=== PATIENT | female | born 1955 | race Caucasian/White ===

== ENCOUNTER → 2016-05-16 | Outpatient (CLI) | payer BC, OTHER ==
[2016-01-26 10:55] VITALS: BP 142/70
[~2016-05-16] MED LIST: ATOR40TA PO; BUPR300T3 PO; CLON0.5T PO; DOXY100T9 PO; GABA-586 PO; SERT100T PO
--- NOTE | 2016-05-17 13:36 | RAD ---
DATE: 05/16/2016 EXAM: Bilateral screening mammography HISTORY: Routine screening COMPARISON: 03/23/2015 This study was interpreted with the benefit of Computerized Aided Detection (CAD). FINDINGS: There are scattered fibroglandular densities in the breasts. An old breast biopsy marker is again noted on the right at the 12:00 location. There is an oval-shaped nodule in the right breast at the 6:00 location which is unchanged. It contains a couple of coarse calcifications. This is probably a fibroadenoma. There is an unchanged cluster of nodules projected over the axillary tail region of the left breast compatible with benign lymph nodes. No new or enlarging breast densities are seen. Benign type calcifications are again noted bilaterally. No suspicious microcalcifications have developed. IMPRESSION: Stable mammograms without evidence of malignancy. BI-RADS CATEGORY: 2 BENIGN FINDING(S) RECOMMENDED FOLLOW-UP: 12M 12 MONTH FOLLOW-UP PQRS compliance statement: Patient information was entered into a reminder system with a target due date for the next mammogram. Mammography is a sensitive method for finding small breast cancers, but it does not detect them all and is not a substitute for careful clinical examination. A negative mammogram does not negate a clinically suspicious finding and should not result in delay in biopsying a clinically suspicious abnormality. "Our facility is accredited by the [employer] Mammography Program."
== END | disposition home or self-care (01) ==
LOC: MAMMO 14:02
PROVIDERS: ATTEND Family Medicine
DX: Z12.31 Encounter for screening mammogram for malignant neoplasm of breast (principal)
CPT/HCPCS: 77063; G0202; 77067

== ENCOUNTER 2017-06-23 22:30 | Emergency (ER) | payer BC ==
[~2017-06-23] VITALS: Ht 165.1 cm; Wt 77.1 kg
--- NOTE | 2017-06-23 22:47 | EKG ---
[address] [address] Test Date: 2017-06-23 Test Time: 22:43:13 Pat Name: JESSICA CANADA Department: Room: Gender: F Bottom Turning Lathe Tender: MARISOL : 1955 Requested By: ELAN DEUTSCH Order Number: [id number] Reading MD: Antony Wolff MD Measurements Intervals [place] Rate: 64 P: 41 NV: 188 QRS: -31 QRSD: 82 T: 66 QT: 414 QTc: 431 Interpretive Statements SINUS RHYTHM Electronically Signed On 06-24-2017 13:02:22 CDT by Antony Wolff MD
[2017-06-23 22:50] VITALS: BP 145/84
--- NOTE | 2017-06-23 23:39 | RAD ---
INDICATION: syncope episode, fall
Sent CT Head from for comparison
hx concussion x 1 month ago COMPARISON: December 19, 2015 TECHNIQUE: Axial CT images obtained through the head and cervical spine without intravenous contrast. Coronal and sagittal reformats processed of cervical spine. One or more of the following individualized dose reduction techniques were utilized for this examination: 1. Automated exposure control; 2. Adjustment of the mA and/or kV according to patient size; 3. Use of iterative reconstruction technique. FINDINGS: Head: No intracranial hemorrhage. No midline shift. Basal cisterns patents. Ventricles and sulci are within normal limits. No acute osseous abnormality. Orbits and paranasal sinuses unremarkable. Cervical: No definite acute fracture. No dislocation. No evidence of perivertebral hematoma. IMPRESSION: 1. No acute intracranial hemorrhage. 2. No definite acute fracture or dislocation of the cervical spine. 3. Degenerative changes throughout the cervical spine with multilevel central canal neural foraminal stenosis as well as grade 1 anterolisthesis of C3 on 4 and C4 on 5. Electronically signed by: Usman Malave MD (06/23/2017 11:35 PM) [id number]
--- NOTE | 2017-06-23 23:43 | ED.ADGEN ---
Past History Past Medical History: Fibromyalgia, High Cholesterol, Hypertension Past Surgical History: No Surgical History Alcohol Use: Occasionally Drug Use: None Adult General Chief Complaint Chief Complaint Syncope HPI HPI Patient is a 61 -year-old female with history of recurrent syncope who presents with syncopal episode and posterior neck pain and right shoulder pain. Patient states she was walking to the kitchen when she began to feel lightheaded and off balance. She then experienced loss of consciousness and fell to the kitchen floors hitting her head, neck and right shoulder. Patient anticoagulation therapy. No seizure activity was reported. EMS was contacted, cervical collar was placed. Patient states she has had multiple similar syncopal episodes and recently had a loop recorder placed. states she was told to previous events that she been bradycardic and hypotensive in that her acquisitions assistant is evaluating her for possible pacemaker placement. Patient denies headache, blurred vision, chest pain, palpitations, shortness of breath, or focal extremity weakness or loss of sensations prior to syncopal event. No orolingual laceration, bowel or bladder incontinence. She states today's episode was similar to previous episodes and that her primary reason for coming to the emergency department so evaluation of back and shoulder pain. Insurance Loss Control Surveyor is Dr. Wolff. [] Review of Systems Review of Systems ROS as per HPI All other systems were reviewed and found to be within normal limits, except as documented in this note. Allergies Allergies Allergies Coded Allergies Type Severity Reaction Last Updated Verified procaine Allergy Intermediate 12/20/15 Yes sulfamethoxazole Allergy Intermediate 12/20/15 Yes trimethoprim Allergy Intermediate 12/20/15 Yes Physical Exam Physical Exam Constitutional: Well developed, well nourished, no acute distress, non-toxic appearance. [] HENT: Normocephalic, atraumatic, bilateral external ears normal, oropharynx moist, nose normal. [] Eyes: PERRLA, EOMI, conjunctiva normal, no discharge. [] Neck: Normal range of motion, she is posterior neck pain, no midline step-off, bruising or hematoma, hard cervical collar in place. [] Cardiovascular:Heart rate regular rhythm, no murmur [] Lungs & Thorax: Bilateral breath sounds clear to auscultation [] Abdomen: Bowel sounds normal, soft, no tenderness. [] Skin: Warm, dry, no erythema, no rash. [] Back: No tenderness. [] Extremities: Right shoulder, no bruising swelling or deformity, tenderness pain over lateral and posterior shoulder. Good range of motion noted with limited pain. [] Neurologic: Alert and oriented X 3, normal motor function, normal sensory function, no focal deficits noted. [] Psychologic: Affect normal, judgement normal, mood normal. [] Current Patient Data Vital Signs Vital Signs Date Time Temp Pulse Resp B/P (MAP) Pulse Ox O2 Delivery O2 Flow Rate FiO2 06/23/17 22:50 98.5 64 19 93 Room Air Lab Results Laboratory Tests Test 06/23/17 23:40 White Blood Count 12.7 x10^3/uL (4.0-11.0) H Red Blood Count 4.37 x10^6/uL (3.50-5.40) Hemoglobin 12.5 g/dL (12.0-15.5) Hematocrit 37.7 % (36.0-47.0) Mean Corpuscular Volume 86 fL (79-100) Mean Corpuscular Hemoglobin 29 pg (25-35) Mean Corpuscular Hemoglobin Concent 33 g/dL (31-37) Red Cell Distribution Width 16.5 % (11.5-14.5) H Platelet Count 173 x10^3/uL (140-400) Neutrophils (%) (Auto) 71 % (31-73) Lymphocytes (%) (Auto) 21 % (24-48) L Monocytes (%) (Auto) 6 % (0-9) Eosinophils (%) (Auto) 1 % (0-3) Basophils (%) (Auto) 1 % (0-3) Neutrophils # (Auto) 9.1 x10^3uL (1.8-7.7) H Lymphocytes # (Auto) 2.7 x10^3/uL (1.0-4.8) Monocytes # (Auto) 0.8 x10^3/uL (0.0-1.1) Eosinophils # (Auto) 0.1 x10^3/uL (0.0-0.7) Basophils # (Auto) 0.1 x10^3/uL (0.0-0.2) Sodium Level 143 mmol/L (136-145) Potassium Level 3.5 mmol/L (3.5-5.1) Chloride Level 107 mmol/L (98-107) Carbon Dioxide Level 29 mmol/L (21-32) Anion Gap 7 (6-14) Blood Urea Nitrogen 19 mg/dL (7-20) Creatinine 0.8 mg/dL (0.6-1.0) Estimated GFR (Cockcroft-Gault) 72.7 BUN/Creatinine Ratio 24 (6-20) H Glucose Level 113 mg/dL (70-99) H Calcium Level 8.5 mg/dL (8.5-10.1) Total Bilirubin 0.3 mg/dL (0.2-1.0) Aspartate Amino Transferase (AST) 20 U/L (15-37) Alanine Aminotransferase (ALT) 29 U/L (14-59) Alkaline Phosphatase 74 U/L (46-116) Total Protein 6.7 g/dL (6.4-8.2) Albumin 3.3 g/dL (3.4-5.0) L Albumin/Globulin Ratio 1.0 (1.0-1.7) EKG EKG [EKG: Normal sinus rhythm, rate 64, no ST-T wave changes, QTC 431.] Radiology/Procedures Radiology/Procedures [CT head/cervical spine: Acute findings per radiology report XR right shoulder: No obvious displaced fracture, possible degenerative changes versus subtle humeral head fracture noted and preliminary ED review.] Course & Med Decision Making Course & Med Decision Making Pertinent Labs and Imaging studies reviewed. (See chart for details) [CT head/cervical spine/right shoulder: No obvious acute process. EKG, lab work nondiagnostic. Admission offered for further evaluation and cardiac consultation -declined. Patient prefers to follow-up with her PCP and acquisitions assistant. Courtesy work note provided. Return precautions reviewed. Patient verbalizes understanding agreement discharge instructions prior to departure.] Final Impression Final Impression [1. Minor head injury 2. Cervical strain 3 right shoulder injury 4 syncope] Problems: Dragon Disclaimer Dragon Disclaimer This electronic medical record was generated, in whole or in part, using a voice recognition dictation system. ELAN DEUTSCH DO June 23, 2017 23:43
[2017-06-23 23:57] LABS: BASO # 0.1 x10^3/uL (0.0-0.2); BASO % 1 % (0-3); EOS # 0.1 x10^3/uL (0.0-0.7); EOS % 1 % (0-3); HEMATOCRIT 37.7 % (36.0-47.0); HEMOGLOBIN 12.5 g/dL (12.0-15.5); LYMPH # 2.7 x10^3/uL (1.0-4.8); LYMPH % 21 % (24-48); MEAN CORPUSCULAR HEMOGLOBIN 29 pg (25-35); MEAN CORPUSCULAR HGB CONC 33 g/dL (31-37); MEAN CORPUSCULAR VOLUME 86 fL (79-100); MONO # 0.8 x10^3/uL (0.0-1.1); MONO % 6 % (0-9); NEUT # 9.1 x10^3uL (1.8-7.7); NEUT % 71 % (31-73); PLATELET COUNT 173 x10^3/uL (140-400); RED BLOOD COUNT 4.37 x10^6/uL (3.50-5.40); RED CELL DISTRIBUTION WIDTH 16.5 % (11.5-14.5); WHITE BLOOD COUNT 12.7 x10^3/uL (4.0-11.0)
[2017-06-24 00:08] LABS: ALBUMIN 3.3 g/dL (3.4-5.0); CALCIUM 8.5 mg/dL (8.5-10.1); CREATININE 0.8 mg/dL (0.6-1.0); GFR 72.7; POTASSIUM 3.5 mmol/L (3.5-5.1); TOTAL BILIRUBIN 0.3 mg/dL (0.2-1.0); TOTAL PROTEIN 6.7 g/dL (6.4-8.2)
--- NOTE | 2017-06-24 08:56 | RAD ---
EXAM: Right shoulder, 3 views. HISTORY: Trauma. COMPARISON: None. FINDINGS: Internal and external rotation and transscapular views of the right shoulder obtained. There is no fracture, dislocation or subluxation. There is mild inferior marginal humeral head spurring. IMPRESSION: 1. No acute osseous finding. 2. Mild glenohumeral osteoarthritis. Electronically signed by: Beatriz Bobo MD (06/24/2017 8:53 AM) [id number]
== END 2017-06-24 00:47 | disposition home or self-care (01) ==
LOC: ER 22:30
DX: R55 Syncope and collapse (principal); S09.90XA Unspecified injury of head, initial encounter; S16.1XXA Strain of muscle, fascia and tendon at neck level, initial encounter; S49.91XA Unspecified injury of right shoulder and upper arm, initial encounter; E78.00 Pure hypercholesterolemia, unspecified; I10 Essential (primary) hypertension; M79.7 Fibromyalgia; Z88.1 Allergy status to other antibiotic agents; Z88.2 Allergy status to sulfonamides; Z88.4 Allergy status to anesthetic agent; W01.198A Fall on same level from slipping, tripping and stumbling with subsequent striking against other object, initial encounter; Y93.01 Activity, walking, marching and hiking; Y99.8 Other external cause status; Y92.090 Kitchen in other non-institutional residence as the place of occurrence of the external cause
CPT/HCPCS: 36415; 70450; 72125; 73030; 80053; 85025; 93005; 99285-25